=== PATIENT | male | born 1950 | race Caucasian/White ===

== ENCOUNTER 2019-09-24 13:58 | Outpatient (CLI) | payer MEDICARE ==
--- NOTE | 2019-09-24 15:04 | RAD ---
EXAM: XR Chest Pa Lat STANDARD PROVIDED CLINICAL HISTORY: Atherosclerotic disease COMPARISON: None FINDINGS: The cardiac silhouette is largely obscured by left basilar pleural and/or parenchymal opacity. The ao rtic contour appears normal as visualized. The mediastinal contour appears normal as visualized. Median sternotomy and CABG changes are seen. The right lung appears clear. There is no evidence for p neumothorax. IMPRESSION: Conspicuous left basilar pleural and/or parenchymal opacity.
== END 2019-09-24 13:59 | disposition home or self-care (01) ==
LOC: RAD 13:58
PROVIDERS: ATTEND Thoracic Surgery (Cardiothoracic Vascular Surgery)
DX: I25.10 Atherosclerotic heart disease of native coronary artery without angina pectoris (principal)
CPT/HCPCS: 71046; 82150; 82945; 83615; 84157; 84478; 87116; 87206

== ENCOUNTER 2019-09-26 08:42 | Day surgery (SDC) | payer MEDICARE ==
--- NOTE | 2019-09-26 11:30 | RAD ---
Chest one view HISTORY: Thoracentesis. Follow-up. COMPARISON: 09/24/2019. FINDINGS: Left cardiac margin remains obscured by pleural and parenchymal opacity at the left inferio r hemithorax. Density in degree of atelectasis have decreased slightly. Mediastinum remains midline with postoperative changes. Patchy parenchymal opacity at the right base has increased slightly. No evidence of pneumothorax. Degenerative changes of the shoulders. IMPRESSION : Slight interval decrease in size of left pleural effusion. Interval development of mild patchy parenchymal opacity at the right base. Infiltrate versus atelecta sis. No evidence of pneumothorax.
[2019-09-26 11:57] LABS: Fluid, pH - Pleural Fld Greater than 7.50 (7.60 - 7.66)
--- NOTE | 2019-09-26 13:00 | OP ---
DATE OF PROCEDURE: 09/26/2019 PROCEDURE PERFORMED: Left thoracentesis. PREOPERATIVE DIAGNOSIS: Left pleural effusion. POSTOPERATIVE DIAGNOSIS: Left pleural effusion. ANESTHESIA: 1% lidocaine without epinephrine. DESCRIPTION OF PROCEDURE: The procedure was done in the Day Stay portion of the hospital. Informed consent was obtained from the patient prior to the procedure. He agreed to proceed. The patient was placed in a sitting position. The left posterior hemithorax was examined. Ultrasound was used to identify the proper entry site, which was about the 5th-6th interspace at the midscapular line on the left. 1% lidocaine was used to anesthetize the entry site after the site had been cleansed with chlorhexidine. [id number] catheter was inserted in the chest and approximately 1.4 L of blood-tinged pleural fluid was removed and sent for appropriate studies. He tolerated the procedure well and a postop x-ray is pending. Job ID: [id number]
[2019-09-26 14:47] LABS: BF Color Red; Body Fluid Source Pleural Fluid; Clarity Cloudy/Turbid (Clear); Tube # 3
[2019-09-26 14:59] LABS: BF WBC/Nonhematics Ct.-Manual 1160 /cumm
[2019-09-26 15:11] LABS: BF Segmented Neutrophils 14 %; Cell Count Non Hematic 25 %; Eosinophils 1 %; Lymphocytes 58 %
--- NOTE | 2019-09-26 16:24 | HP ---
HISTORY OF PRESENT ILLNESS: This is a 69-year-old male, who had coronary artery bypass grafting surgery at [facility] 2 weeks ago. He presented to Dr. Cox's office earlier this week with shortness of breath. He was found to have substantial left pleural effusion and I was asked to perform a thoracentesis. PAST MEDICAL HISTORY: Remarkable for coronary artery disease. PAST SURGICAL HISTORY: Recent CABG. MEDICATIONS: The patient is currently on aspirin as well as some other blood pressure medication. SOCIAL HISTORY: He does not smoke. He occasionally consume alcohol. REVIEW OF SYSTEMS: Otherwise, negative. PHYSICAL EXAMINATION: VITAL SIGNS: O2 saturation 99% on room air, pulse 65, and respirations 18. GENERAL: He is awake, alert, in no distress. HEENT: Unremarkable. NECK: No adenopathy or JVD. LUNGS: Diminished breath sounds with dullness to percussion in left base. Right side clear. CARDIAC: S1 and S2. Regular. ABDOMEN: Soft. EXTREMITIES: No edema. IMAGING DATA: Chest x-ray shows a substantial left pleural effusion. This was confirmed by ultrasound. ASSESSMENT: Left pleural effusion. PLAN: Diagnostic and therapeutic left thoracentesis. Further disposition to follow after pathology results come back. I assume this is probably just a post CABG left pleural effusion, which is not out of the ordinary. Job ID: [id number]
== END 2019-09-26 11:45 | disposition home or self-care (01) ==
LOC: SDC 08:42
PROVIDERS: ATTEND Internal Medicine Critical Care Medicine
PROC: 0BJQ3ZZ Inspection of Pleura, Percutaneous Approach (ICD-10-PCS; principal; 2019-09-26)
DX: J90 Pleural effusion, not elsewhere classified (principal); I25.10 Atherosclerotic heart disease of native coronary artery without angina pectoris; Z79.82 Long term (current) use of aspirin; Z95.1 Presence of aortocoronary bypass graft
CPT/HCPCS: 32554; 71045; 82150; 82945; 83615; 84157; 84478; 85060; 87070; 87116; 87205; 87206; 88112; 88305; 89051

== ENCOUNTER 2019-10-10 10:12 | Outpatient (CLI) | payer MEDICARE, OTHER ==
[2019-10-11 10:40] LABS: SARS-CoV-2 MS2 Positive; SARS-CoV-2 N Gene Negative; SARS-CoV-2 S Gene Negative; SARS-CoV-2 orf1ab Negative
== END 2019-10-10 10:13 | disposition home or self-care (01) ==
LOC: LABBT 10:12
PROVIDERS: ATTEND Internal Medicine Critical Care Medicine
DX: Z01.812 Encounter for preprocedural laboratory examination (principal); Z11.59 Encounter for screening for other viral diseases; J90 Pleural effusion, not elsewhere classified
CPT/HCPCS: 87635; U0003

== ENCOUNTER 2019-10-11 11:39 | Day surgery (SDC) | payer MEDICARE ==
[2019-10-11 13:01] LABS: RBC Count-Automated (BF) 9855 /cu.mm; WBC/Nucleated-Auto (BF) 1472 uL
[2019-10-11 13:14] LABS: Pleural Fluid, Protein 4.6 g/dL
[2019-10-11 13:29] LABS: Fluid, pH - Pleural Fld Greater than 7.50 (7.60 - 7.66)
[2019-10-11 13:36] LABS: Body Fluid Source Pleural Fluid; Clarity Cloudy/Turbid (Clear); Tube # 3
[2019-10-11 13:39] LABS: BF Segmented Neutrophils 5 %; Cell Count Non Hematic 24 %; Eosinophils 12 %; Lymphocytes 50 %
== END 2019-10-11 12:50 | disposition home or self-care (01) ==
LOC: SDC/OP 11:39
PROVIDERS: ATTEND Internal Medicine Critical Care Medicine
PROC: 0BJQ3ZZ Inspection of Pleura, Percutaneous Approach (ICD-10-PCS; principal; 2019-10-11)
DX: J90 Pleural effusion, not elsewhere classified (principal); Z79.82 Long term (current) use of aspirin
CPT/HCPCS: 32554; 82150; 82945; 83615; 84157; 84478; 85060; 87070; 87116; 87205; 87206; 88112; 88305; 89051

== ENCOUNTER 2023-09-26 10:22 | Outpatient (CLI) | payer MEDICARE | END 2023-09-26 10:23 | disposition home or self-care (01) | LOC: SCSRAD 10:22 | PROVIDERS: ATTEND Nurse Practitioner Family | DX: R07.81 Pleurodynia (principal); S22.41XA Multiple fractures of ribs, right side, initial encounter for closed fracture ==

== ENCOUNTER 2025-01-16 10:31 | Outpatient (CLI) | payer MEDICARE ==
[2025-01-16 11:02] LABS: Estimated GFR - POC 79.0
== END 2025-01-16 10:32 | disposition home or self-care (01) ==
LOC: SCSMRI 10:31
PROVIDERS: ATTEND Orthopaedic Surgery
DX: S32.039A Unspecified fracture of third lumbar vertebra, initial encounter for closed fracture (principal); M48.56XA Collapsed vertebra, not elsewhere classified, lumbar region, initial encounter for fracture; M48.061 Spinal stenosis, lumbar region without neurogenic claudication
CPT/HCPCS: 36415; 72158; 82565

== ENCOUNTER 2025-02-24 13:07 | Outpatient (CLI) | payer MEDICARE | END 2025-02-24 13:08 | disposition home or self-care (01) | LOC: SCSRAD 13:07 | PROVIDERS: ATTEND Nurse Practitioner Family | DX: R07.89 Other chest pain (principal) ==